=== PATIENT | male | born 1985 | race Two or more races ===

== ENCOUNTER 2018-08-14 04:30 | Emergency (ER) | payer OTHER ==
[~2018-08-14] VITALS: Ht 182.9 cm; Wt 79.1 kg
[2018-08-14] MEDS ORDERED: MAALOX/HYOSCYAMINE/LIDOCAINE 45 ML BTL ONE (04:56)
[2018-08-14] MEDS ORDERED: LORazepam 1MG TABLET ONE (04:57)
[2018-08-14] MEDS ORDERED: LORazepam 1MG TABLET PO ONE (05:00)
[2018-08-14] MEDS ORDERED: MAALOX/HYOSCYAMINE/LIDOCAINE 45 ML BTL PO ONE (05:00)
[2018-08-14] MEDS ORDERED: SODIUM CHLORIDE 0.9% 1,000ML IVBOLUS ONE (07:30)
[2018-08-14 07:53] LABS: BASOPHILS # (AUTO) 0.04 x10^3/uL (0-0.1); BASOPHILS % (AUTO) 1 % (0-1); EOSINOPHILS % (AUTO) 2 % (1-7); LYMPHOCYTES # (AUTO) 1.95 x10^3/uL (1-3.4); LYMPHOCYTES % (AUTO) 38 % (22-44); MD NO; MEAN CORPUSCULAR HEMOGLOBIN 30.7 pg (27.5-34.5); MEAN CORPUSCULAR HGB CONC 33.5 g/dL (33.2-36.2); MEAN CORPUSCULAR VOLUME 91.5 fL (81-97); MEAN PLATELET VOLUME 9.2 fL (7.4-10.4); MONOCYTES # (AUTO) 0.57 x10^3/uL (0.2-0.8); MONOCYTES % (AUTO) 11 % (2-9); NEUTROPHILS # (AUTO) 2.47 x10^3/uL (1.8-6.8); NEUTROPHILS % (AUTO) 48 % (42-75); PLATELET COUNT 184 x10^3/uL (130-400); RED CELL DISTRIBUTION WIDTH 12.9 % (9.4-14.8)
[2018-08-14 08:04] LABS: ALANINE AMINOTRANSFERASE 30 U/L (12-78); ALBUMIN 3.7 g/dL (3.4-5.0); ANION GAP 10 mmol/L (5-15); CALCIUM 8.5 mg/dL (8.5-10.1); CHLORIDE 101 mmol/L (98-107)
[2018-08-14 08:05] LABS: SALICYLATE LEVEL < 1.7 mg/dL (2.8-20.0)
[2018-08-14 08:06] LABS: ALKALINE PHOSPHATASE 79 U/L (45-117); CREATININE 1.39 mg/dL (0.7-1.3); TOTAL PROTEIN 7.8 g/dL (6.4-8.2)
[2018-08-14 08:09] LABS: ACETAMINOPHEN < 2 mcg/mL (10-30)
[2018-08-14] MEDS ORDERED: PLEASE ENTER ALLERGIES MC SCH (08:30)
[2018-08-14] MEDS ORDERED: KETOROLAC 30 MG/1 ML IM ONE (08:30)
[2018-08-14 09:18] LABS: MICROSCOPIC NOT IND
[2018-08-14 09:32] LABS: CULTURE INDICATED? NO
[2018-08-14 09:56] VITALS: BP 107/50
== END 2018-08-14 10:18 | disposition home or self-care (01) ==
LOC: ED 05:51
DX: F15.10 Other stimulant abuse, uncomplicated (principal); F41.9 Anxiety disorder, unspecified
CPT/HCPCS: 36415; 70450; 71046; 80053; 80307; 80329; 81003; 85025; 93005; 99285; J7030; G0480